=== PATIENT | male | born 1990 | race Caucasian/White ===

== ENCOUNTER 2016-11-29 01:54 | Emergency (ER) | payer OTHER ==
[~2016-11-29] VITALS: Ht 170.2 cm; Wt 92.2 kg
[2016-11-29] MEDS ORDERED: VALIUM5 MG PO (02:56)
[2016-11-29 03:08] VITALS: BP 129/91
== END 2016-11-29 03:09 | disposition home or self-care (01) ==
LOC: EME 01:54
DX: S16.1XXA Strain of muscle, fascia and tendon at neck level, initial encounter (principal); V49.40XA Driver injured in collision with unspecified motor vehicles in traffic accident, initial encounter; F17.200 Nicotine dependence, unspecified, uncomplicated
CPT/HCPCS: 99281; 99283; J1885